=== PATIENT | female | born 1990 | race Caucasian/White ===

== ENCOUNTER 2020-01-13 12:48 | Emergency (ER) | payer OTHER ==
[2020-01-13 12:57] VITALS: TEMP 98.3; BMI 25.0
--- NOTE | 2020-01-13 13:29 | PDOC ---
History of Present Illness - General Chief Complaint: Pain Stated Complaint: LOWER ABDOMINAL PAIN FOR 1/2 HOUR Time Seen by Provider: 01/13/20 12:50 History Source: Patient Exam Limitations: No Limitations - History of Present Illness Initial Comments: 01/13/20 13:26 29-year-old female no past medical history here today complaining with sudden onset lower abdominal pain. Patient states she was at work had a bowel movement went back to her desk shortly thereafter had severe sharp excruciating lower abdominal pain. Denies any history of prior ovarian cysts or renal colic no fevers no chills no change to her bowel habits no vomiting but did get nauseous during the time of pain Patient states she is currently sexually active with one partner uses condoms is not on control Past History - Medical History Allergies/Adverse Reactions: Allergies Allergy/AdvReac Type Severity Reaction Status Date / Time No Known Allergies Allergy Unverified 01/13/20 12:50 Home Medications: Ambulatory Orders Levothyroxine [Synthroid -] 25 mcg PO DAILY 01/13/20 COPD: No Thyroid Disease: Yes - Reproductive History Is Patient Now?: No - Psycho-Social/Smoking History Smoking History: Never smoked Information on smoking cessation initiated: No - Substance Abuse Hx (Audit-C & DAST Scrn) How often the patient has a drink containing alcohol: 2-4 times / month Number of drinks the patient has on a typical day: 1 or 2 Score: In Men: 4 or > Positive; In Women: 3 or > Positive: 2 Screen Result (Pos requires Nsg. Audit-10AR): Negative Review of Systems - Review of Systems Constitutional: No: Chills, Fever HEENTM: No: Mouth Swelling Respiratory: No: Cough, Shortness of Breath Cardiac (ROS): No: Chest Pain : Yes: Pain. No: Burning, Dysuria Musculoskeletal: No: Back Pain, Joint Pain Integumentary: No: Bruising, Change in Color All Other Systems: Reviewed and Negative *Physical Exam - Vital Signs Last Vital Signs Temp Pulse Resp BP Pulse Ox 98.3 F 104 H 16 105/71 97 01/13/20 12:49 01/13/20 12:49 01/13/20 12:49 01/13/20 12:49 01/13/20 12:49 - Physical Exam 01/13/20 13:27 Patient is awake alert no distress lungs are clear bilaterally heart is regular murmurs rubs or gallops abdomen soft there is significant right lower quadrant a nd suprapubic tenderness positive rebound and guarding no CVA tenderness extremities are warm well perfused neurologically patient is awake alert and oriented x3 ED Treatment Course - LABORATORY CBC & Chemistry Diagram: 01/13/20 13:35 01/13/20 13:35 Medical Decision Making - Medical Decision Making 01/13/20 13:28 29-year-old female here with sudden onset right lower quadrant suprapubic pain. Tenderness on my exam Differential includes ruptured ovarian cyst or hemorrhagic cyst torsion ruptured ectopic ruptured appendicitis renal colic Focused ED unofficial screening ultrasound FAST exam demonstrates free fluid in the pelvis likely consistent with a hemorrhagic cyst versus ruptured ectopic UCG was sent and is pending patient will be ordered CBC CMP fluids transvaginal pelvic ultrasound ordered 01/13/20 13:37 ucg poc negative. elijah hemorrhagic cyst. Discharge - Discharge Information Problems reviewed: Yes Clinical Impression/Diagnosis: Hemorrhagic cyst of ovary Condition: Improved Disposition: HOME - Admission No - Follow up/Referral - Patient Discharge Instructions Patient Printed Discharge Instructions: Ovarian Cyst Additional Instructions: you have a bleeding ovarian cyst . this is likely the cause of your pain. you can take motrin 600 mg every 8 hours as needed for pain. return for any worsening pain, vomiting, dizziness or any concerns. this bleeding is likley to stop on its own, however you should avoid strenous activity and intercourse until your pain has resolved. you should also follow up with your primary behavioral health therapist. call to be seen within one week. - Post Discharge Activity
[2020-01-13] MEDS ORDERED: SODIUM CHLORIDE 0.9% 1000 ML INFUS.BAG IV ONE (13:33)
[2020-01-13 13:48] LABS: HCG,QUALITATIVE URINE Negative
[2020-01-13 14:47] LABS: HEMOGLOBIN 12.7 GM/dl (10.7-15.3); MEAN PLT VOLUME 9.4 fl (7.5-11.1)
[2020-01-13 14:51] LABS: BASO % 0.1 % (0-2.0); EOS % 1.8 % (0-4.5); HEMATOCRIT 37.7 % (32.4-45.2); LYMPH % 21.6 % (8-40); MCH 30.4 pg (25.7-33.7); MCHC 33.7 g/dl (32.0-36.0); MEAN CELL VOLUME 90.1 fl (80-96); MONO % 8.8 % (3.8-10.2); NEUT % 67.7 % (42.8-82.8); PLATELET COUNT 202 K/MM3 (134-434); RBC 4.19 M/mm3 (3.60-5.2); RDW 12.5 % (11.6-15.6); WHITE BLOOD COUNT 7.2 K/mm3 (4.0-10.8)
[2020-01-13 14:57] LABS: ACTIVATED PTT 29.6 SECONDS (25.2-36.5)
[2020-01-13 14:58] LABS: ALBUMIN 4.1 g/dl (3.4-5.0); BILIRUBIN,TOTAL 0.7 mg/dl (0.2-1); CREATININE 0.7 mg/dl (0.55-1.3); POTASSIUM 3.9 mmol/L (3.5-5.1); TOT PROT 6.7 g/dl (6.4-8.2)
[2020-01-13 15:01] LABS: INR 1.08 (0.82-1.09); PROTHROMBIN TIME (PATIENT) 12.1 SEC (10.2-13.0)
[2020-01-13] MEDS ORDERED: KETOROLAC TROMETHAMINE 30 MG/1 ML VIAL IVPUSH ONE (15:38)
[2020-01-13] MEDS ORDERED: KETOROLAC TROMETHAMINE 30 MG/1 ML VIAL ONE (15:54)
[2020-01-13 17:23] LABS: BASO % 0.8 % (0-2.0); EOS % 0.9 % (0-4.5); HEMATOCRIT 34.5 % (32.4-45.2); HEMOGLOBIN 11.8 GM/dl (10.7-15.3); LYMPH % 24.6 % (8-40); MCH 30.9 pg (25.7-33.7); MCHC 34.4 g/dl (32.0-36.0); MEAN PLT VOLUME 8.9 fl (7.5-11.1); MONO % 4.7 % (3.8-10.2); PLATELET COUNT 174 K/MM3 (134-434); RBC 3.83 M/mm3 (3.60-5.2); RDW 12.2 % (11.6-15.6); WHITE BLOOD COUNT 7.9 K/mm3 (4.0-10.8)
[2020-01-13 17:51] VITALS: BP 104/64; PULSE 88
== END 2020-01-13 17:58 | disposition home or self-care (01) ==
LOC: FER 12:48
PROC: 3E033NZ Introduction of Analgesics, Hypnotics, Sedatives into Peripheral Vein, Percutaneous Approach (ICD-10-PCS; principal; 2020-01-13)
DX: N83.209 Unspecified ovarian cyst, unspecified side (principal)
CPT/HCPCS: 36415; 76830-TC; 80053; 81003; 81025; 84702; 84703; 85025; 85610; 85730; 86850; 86900; 86901; 99284-25